=== PATIENT | female | born 1995 | race African-American/Black ===

== ENCOUNTER 2024-12-05 01:46 | Emergency (ER) | payer MEDICAID ==
[~2024-12-05] VITALS: Ht 172.7 cm; Wt 146.6 kg
--- NOTE | 2024-12-05 02:08 | ED.PDOC ---
NET C DEVELOPER HPI Comments 29 year old female presents to the ED with a chief complaint of vaginal bleeding onset 2 days. Patient took an at home test 1 week ago, was positive. Patient experienced miscarriage in August, P:1, has appointment with OBGYN 12/27/24. Patient states she began experiencing vaginal bleeding 2 days ago, resolved and began bleeding last night around 23:50. Patient has not gotten menstrual cycle since in August. Patient denies any preceding trauma, injury or intercourse. Denies any PMHx as well as abdominal pain, dysuria, chest pain, shortness of breath, dizziness, nausea, vomiting, diarrhea. No other symptoms or other modifying factors present at this time. Time Seen by MD: 02:00 Reviewed Notes: Medications, Allergies Allergies: Coded Allergies: NO KNOWN ALLERGIES (Unverified , 04/25/16) Information Source: Patient Mode of Arrival: Ambulatory Timing: Days Prehospital treatment: None Severity: Moderate Vaginal Discharge: None Vaginal Lesions: None Bleeding Quality: Bright Red Vaginal Mass: None Onset Of Mass/Bleeding: Spontaneous Sexual Activity: Control: None History of: Current Associated Signs and Symptoms: Vaginal Bleeding Vital Signs Vital Signs Date Time Temp Pulse Resp B/P (MAP) Pulse Ox O2 Delivery O2 Flow Rate FiO2 12/05/24 03:50 98.0 97 15 137/88 (104) 100 98.0 12/05/24 03:50 Room Air* 0 21 Physical Exam General: Awake, alert and oriented. No acute distress. Skin: Skin in warm, dry and intact. Appropriate color for ethnicity. HEENT: The head is normocephalic and atraumatic. Conjunctivae are clear without exudates or hemorrhage. Sclera is non-icteric. EOM are intact. No signs of nystagmus. Eyelids are normal in appearance without swelling or lesions. Oral mucosa is pink and moist Neck: The neck is supple with normal range of motion. No JVD. Cardiac: Heart rate and rhythm are normal. No murmurs, gallops, or rubs are auscultated. Respiratory: No signs of respiratory distress. Lung sounds are clear in all lobes bilaterally without rales, rhonchi, or wheezes. Abdominal: Abdomen is soft, non-tender without distention. Bowel sounds are present and normoactive in all four quadrants. No CVA tenderness : Deferred Extremities: Upper and lower extremities are atraumatic in appearance without deformity or edema. Neurological: The patient is awake, alert and oriented to person, place, and time with normal speech. Speech is clear. There is no facial asymmetry. Normal gait Psychiatric: Appropriate mood and affect. Good judgement and insight. Review of Systems: REVIEW OF SYSTEMS: No fever, no chills, or fatigue HEENT: No sore throat, no earache, no congestion, no neck pain. Cardiac: No chest pain. No palpitations. Lungs: No shortness of breath, no cough. GI: No nausea, no vomiting, no diarrhea, no constipation, no abdominal pain : No dysuria, frequency, or urgency. No hematuria. Positive vaginal bleeding Musculoskeletal: No joint pain , no joint swelling, no extremity edema. Skin: No rash, no itching. Neuro: No headache, no dizziness, no weakness Past Medical History PAST MEDICAL HISTORY: Denies Surgical History: Denies all surgeries MOUNTER CLARINETS History: No Pertinent MOUNTER CLARINETS History Family History Family History: Reviewed,noncontributory to illness, No family hx of Cancer, No family hx of DM, No family hx of Heart elham, No family hx of HTN, No family hx ofKidney elham, No family hx of Liver elham, No family hx of Lung elham, No family hx of Stroke Social History Smoker: Non-Smoker Alcohol: Denies ETOH Use Drugs: Denies Drug Use Lives In: Home Differential Diagnosis (MOUNTER CLARINETS) Vaginal Bleeding: - Complete, - Incomplete, - Inevitable, - Missed, - Threatened, Abruptio Placentae, Blood Loss Anemia, Dysmenorrhea, Ectopic , Placenta Previa, Trauma, UTI, Vaginitis, Other X-Ray, Labs, Meds, VS Vital Signs Date Time Temp Pulse Resp B/P (MAP) Pulse Ox O2 Delivery O2 Flow Rate FiO2 12/05/24 03:50 98.0 97 15 137/88 (104) 100 98.0 12/05/24 03:50 Room Air* 0 21 12/05/24 01:58 98.0 99 13 137/88 (104) 100 98.0 Lab Test 12/05/24 02:07 12/05/24 02:04 Range/Units White Blood Count 7.3 4.4-10.8 10^3/uL Red Blood Count 4.85 4.0-5.20 10^6/uL Hemoglobin 12.8 12.2-16.2 g/dL Hematocrit 37.7 36.0-46.0 % Mean Corpuscular Volume 77.8 L 80.0-100.0 fL Mean Corpuscular Hemoglobin 26.3 L 28.0-32.0 pg Mean Corpuscular Hemoglobin Concent 33.9 32.0-36.0 g/dL Red Cell Distribution Width 14.3 11.8-14.3 % Platelet Count 275 140-450 10^3/uL Mean Platelet Volume 7.7 6.9-10.8 fL Neutrophils (%) (Auto) 44.5 37.0-80.0 % Lymphocytes (%) (Auto) 46.4 10.0-50.0 % Monocytes (%) (Auto) 6.6 0.0-12.0 % Eosinophils (%) (Auto) 2.3 0.0-7.0 % Basophils (%) (Auto) 0.2 0.0-2.0 % Neutrophils # (Auto) 3.2 1.6-8.6 10 ^3/uL Lymphocytes # (Auto) 3.4 0.4-5.4 10 ^3/uL Monocytes # (Auto) 0.5 0-1.3 10 ^3/uL Eosinophils # (Auto) 0.2 0-0.8 10 ^3/uL Basophils # (Auto) 0 0-0.2 10 ^3/uL Nucleated Red Blood Cells 0.0 % Sodium Level 140 136-145 mmol/L Potassium Level 3.8 3.5-5.1 mmol/L Chloride Level 105 98-107 mmol/L Carbon Dioxide Level 27 20-31 mmol/L Anion Gap 8 5-15 Blood Urea Nitrogen 7 L 9-23 mg/dL Creatinine 0.88 0.550-1.02 mg/dL Glomerular Filtration Rate Calc 92 >90 mL/min BUN/Creatinine Ratio 8.0 L 10.0-20.0 Serum Glucose 107 H 74-106 mg/dL Calcium Level 9.3 8.7-10.4 mg/dL Total Bilirubin 0.3 0.2-1.0 mg/dL Aspartate Amino Transferase (AST) 10 L 13-40 U/L Alanine Aminotransferase (ALT) 18 7-40 U/L Alkaline Phosphatase 64 46-116 U/L Total Protein 7.6 5.7-8.2 g/dL Albumin 4.7 3.2-4.8 g/dL Beta HCG, Quantitative 665.5 H 1.5-4.2 mIU/mL Urine Color Yellow Yellow Urine Clarity Turbid H Clear Urine pH 6.0 5.0-9.0 Urine Specific [place] 1.035 1.001-1.035 Urine Protein 1+ H Negative Urine Ketones Trace Negative Urine Blood 3+ H Negative /uL Urine Nitrite Negative Negative Urine Bilirubin Negative Negative Urine Urobilinogen 2 H Negative mg/dL Urine Leukocyte Esterase Negative Negative /uL Urine RBC 1655 0 - 4 /hpf Urine Microscopic WBC 3 0-5 /HPF Urine Squamous Epithelial Cells Few <5 /hpf Urine Bacteria None seen None Seen /hpf Urine Mucus Few None Seen Urine Glucose Normal Normal mg/dL Time of 1ST Reevaluation: 02:30 Reevaluation 1ST: Unchanged Patient Education/Counseling: Need For Follow Up Family Education/Counseling: No Family Present Departure 1 Departure Time of Disposition: 04:49 Impression: Primary Impression: Vaginal bleeding affecting early Disposition: 01 HOME / SELF CARE / HOMELESS Condition: Stable Additional Instructions: ED DISCHARGE INSTRUCTIONS Instructions: Please read all instructions provided in this packet carefully. Although you have been discharged from the Emergency Department, this does not mean that you have a "clean bill of health". No definitive diagnosis for your symptoms has been made today. It is possible that you are in the process of developing a serious illness. This is why you must return to the ED without fail if any new or worsening symptoms (especially if your symptoms include heavy vaginal bleeding, bleeding through more than 1 pad per hour, lightheadedness, shortness of breath, dizziness chest pain, trouble breathing, abdominal pain, fever, headache, confusion, trouble seeing, or trouble walking) It is also very important that you see a Ob/GN in the next 1-2 days to follow up. If you are unable to get an appointment, return to the ED for re-evaluation. Overview It's common to have some vaginal spotting when you are . In some cases, the bleeding isn't serious. And there aren't any more problems with the . But sometimes bleeding is a sign of a more serious problem. This is more common if the bleeding is heavy or painful. Examples of more serious problems include miscarriage, an ectopic , and a problem with the placenta. You may have to see your doctor again to be sure everything is okay. You may also need more tests to find the cause of the bleeding. Home treatment may be all you need. But it depends on what is causing the bleeding. Be sure to tell your doctor if you have any new symptoms or if your symptoms get worse. The doctor has checked you carefully, but problems can develop later. If you notice any problems or new symptoms, get medical treatment right away. Follow-up care is a lee part of your treatment and safety. Be sure to make and go to all appointments, and call your doctor if you are having problems. It's also a good idea to know your test results and keep a list of the medicines you take. How can you care for yourself at home? If your doctor prescribed medicines, take them exactly as directed. Call your doctor if you think you are having a problem with your medicine. Do not have vaginal sex until your doctor says it's okay. Do not put anything in your vagina until your doctor says it's okay. Ask your doctor about other activities you can or can't do. Get a lot of rest. Being can make you tired. Do not use nonsteroidal anti-inflammatory drugs (NSAIDs), such as ibuprofen (Advil, Motrin), naproxen (Aleve), or aspirin, unless your doctor says it is okay. When should you call for help? Call 911 anytime you think you may need emergency care. For example, call if: You passed out (lost consciousness). You have severe vaginal bleeding. This means you are soaking through a pad each hour for 2 or more hours. You have sudden, severe pain in your belly or pelvis. Call your doctor now or seek immediate medical care if: You have new or worse vaginal bleeding. You are dizzy or lightheaded, or you feel like you may faint. You have pain in your belly, pelvis, or lower back. You think that you are in labor. You have a sudden release of fluid from your vagina. You've been having regular contractions for an hour. This means that you've had at least 8 contractions within 1 hour or at least 4 contractions within 20 minutes, even after you change your position and drink fluids. You notice that your baby has stopped moving or is moving much less than normal. Watch closely for changes in your health, and be sure to contact your doctor if you have any problems. Comments [id number] female who presented to the emergency department with va ginal bleeding in early . Patient's vital signs stable. She is not hypotensive. H&H within normal limits. Patient reports bleeding has slowed during the ED observation. She is reporting no associated abdominal or pelvic pain. Patient was offered ultrasound for further evaluation, location of . At this time patient wishes to go home. 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 Critical Care Note Critical Care Time?: No Stability Stability form required: No I personally scribed for DIEGO LOUIS MD ([email or web address]) on 12/05/24 at 02:08. Electronically submitted by Jenny Vo ([email or web address]). I personally scribed for DIEGO LOUIS MD ([email or web address]) on 12/05/24 at 02:09. Electronically submitted by Jenny Vo ([email or web address]). DIEGO LOUIS MD December 05, 2024 02:08
[2024-12-05 02:19] LABS: Basophils # (auto) 0 10 ^3/uL (0-0.2); Eosinophils # (auto) 0.2 10 ^3/uL (0-0.8); Eosinophils % (auto) 2.3 % (0.0-7.0); Hematocrit 37.7 % (36.0-46.0); Lymphocytes # (auto) 3.4 10 ^3/uL (0.4-5.4); Mean Corpuscular Hemoglobin 26.3 pg (28.0-32.0); Monocytes # (auto) 0.5 10 ^3/uL (0-1.3); Neutrophils # (auto) 3.2 10 ^3/uL (1.6-8.6); Red Cell Distribution Width 14.3 % (11.8-14.3)
[2024-12-05 02:21] LABS: Basophils % (auto) 0.2 % (0.0-2.0); Hemoglobin 12.8 g/dL (12.2-16.2); Lymphocytes % (auto) 46.4 % (10.0-50.0); Mean Corpuscular Hgb Conc. 33.9 g/dL (32.0-36.0); Mean Corpuscular Volume 77.8 fL (80.0-100.0); Monocytes % (auto) 6.6 % (0.0-12.0); Neutrophils % (auto) 44.5 % (37.0-80.0); Platelet Count (auto) 275 10^3/uL (140-450); Red Blood Cells 4.85 10^6/uL (4.0-5.20); White Blood Cell 7.3 10^3/uL (4.4-10.8)
[2024-12-05 02:27] LABS: Urine Bacteria None Seen /hpf (None Seen)
[2024-12-05 02:33] LABS: Alanine Aminotransferase 18 U/L (7-40); Albumin 4.7 g/dL (3.2-4.8); Alkaline Phosphatase 64 U/L (46-116); Anion Gap 8 (5-15); Bilirubin, Total 0.3 mg/dL (0.2-1.0); Calcium 9.3 mg/dL (8.7-10.4); Carbon Dioxide 27 mmol/L (20-31); Chloride 105 mmol/L (98-107); Potassium 3.8 mmol/L (3.5-5.1); Sodium 140 mmol/L (136-145); Total Protein 7.6 g/dL (5.7-8.2)
[2024-12-05 02:55] LABS: Aspartate Aminotransferase 10 U/L (13-40); Blood Urea Nitrogen 7 mg/dL (9-23); Glucose 107 mg/dL (74-106)
[2024-12-05 03:38] LABS: Urine Blood 3+ /uL (Negative); Urine Clarity Turbid (Clear); Urine Color Yellow (Yellow); Urine Mucus FEW (None Seen); Urine Protein, UAD 1+ (Negative); Urine Specific Gravity 1.035 (1.001-1.035); Urine Squamous Epithelial Cell FEW /hpf (<5); Urine Urobilinogen 2 mg/dL (Negative); Urine WBC 3 /HPF (0-5)
[2024-12-05 03:50] VITALS: BP 137/88; PULSE 97; RESP 15; TEMP 98; O2SAT 100
== END 2024-12-05 05:03 | disposition home or self-care (01) ==
LOC: ER 01:46
DX: O20.9 Hemorrhage in early pregnancy, unspecified (principal); R10.2 Pelvic and perineal pain
CPT/HCPCS: 36415; 80053; 81001; 84702; 85025